=== PATIENT | male | born 1990 | race Caucasian/White ===

== ENCOUNTER 2018-07-07 17:00 | Emergency (ER) | payer OTHER ==
[~2018-07-07] VITALS: Ht 185.4 cm; Wt 72.6 kg
[2018-07-07] MEDS ORDERED: HYDROCODONE/APAP 10MG-325MG TAB PO ONE (17:15)
--- NOTE | 2018-07-07 18:17 | Diagnostic Imaging Report ---
Radiographs of the left foot - 3 views HISTORY: Pain COMPARISON: None available. FINDINGS: Bones: Comminuted fractures involving the proximal third fourth and fifth metatarsals with soft tissue swelling. Osseous alignment is within normal limits. Joints: The joint spaces are well-maintained. Soft tissues: The soft tissues appear unremarkable. IMPRESSION: Comminuted fractures involving the proximal third fourth and fifth metatarsals with soft tissue swelling. Signed by: Dr. Sathya Dent M.D. on 07/07/2018 6:14 PM
[2018-07-28] MEDS ORDERED: IBUPROFEN400 MG PO (09:42)
== END 2018-07-07 18:50 | disposition home or self-care (01) ==
LOC: ER 17:00
DX: S92.325A Nondisplaced fracture of second metatarsal bone, left foot, initial encounter for closed fracture (principal); S92.335A Nondisplaced fracture of third metatarsal bone, left foot, initial encounter for closed fracture; S92.345A Nondisplaced fracture of fourth metatarsal bone, left foot, initial encounter for closed fracture; S92.355A Nondisplaced fracture of fifth metatarsal bone, left foot, initial encounter for closed fracture; S97.82XA Crushing injury of left foot, initial encounter; Y99.0 Civilian activity done for income or pay
CPT/HCPCS: 99283

== ENCOUNTER 2018-07-07 22:51 | Emergency (ER) | payer OTHER ==
[~2018-07-07] VITALS: Ht 185.4 cm; Wt 72.6 kg
[2018-07-28] MEDS ORDERED: IBUPROFEN400 MG PO (09:42)
== END 2018-07-07 23:36 | disposition home or self-care (01) ==
LOC: ER 22:51
DX: S92.335A Nondisplaced fracture of third metatarsal bone, left foot, initial encounter for closed fracture (principal); S92.345A Nondisplaced fracture of fourth metatarsal bone, left foot, initial encounter for closed fracture; S92.355A Nondisplaced fracture of fifth metatarsal bone, left foot, initial encounter for closed fracture; X58.XXXA Exposure to other specified factors, initial encounter; Y92.008 Other place in unspecified non-institutional (private) residence as the place of occurrence of the external cause
CPT/HCPCS: 99282

== ENCOUNTER → 2018-07-28 | Day surgery (SDC) | payer OTHER ==
[~2018-07-28] MED LIST: ACETAMINOPHEN 1000 MG/100 ML IV ONE; BUPIVACAINE HCL 0.5% INJ 30 ML VIAL INJ ONE; CEFAZOLIN SOD 1 GM/D5W 50ML 50 ML IV ONE; DEXAMETHASONE SOD PHOS INJ 4 MG/ML VIAL ONE; FENTANYL CITRATE/PF 100MCG/2 ML INJ ONE; IBUPROFEN400 MG PO; KETOROLAC TROMETHAMINE 30 MG/ML VIAL ONE; LIDOCAINE HCL 2% LOCAL INJ 5 ML SDV VIAL INJ ONE; MIDAZOLAM HCL 2 MG/2 ML VIAL ONE; ONDANSETRON HCL INJ 2 MG/ML VIAL ONE; PROPOFOL IV EMULSION 10 MG/ML 20 ML VIAL ONE; SEVOFLURANE INHAL SOLN 250 ML PEN BTL ONE
--- OUTSIDE RECORDS SUMMARY | 2018-07-28 09:05 | XMS REPORT ---
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 Allergies, Adverse Reactions, Alerts This patient has no known allergies or adverse reactions. Medications This patient has no known medications. Results Test Description Test Time Test Comments Text Results Atomic Results Result Comments FOOT LEFT COMPLETE 2018-07-07 18:13:00 [place] [address] Patient Name: MERY SHEPHERD MR #: [id number] : 1990 Age/Sex: 27/M Req #: [id number] Adm Physician: Ordered by: LEOBARDO BLUM NET MOBILE DEVELOPER Report #: [id number] Location: ER Room/Bed: Procedure: [id number] DX/FOOT LEFT COMPLETE Exam Date: 07/07/18 Exam Time: 1759 REPORT STATUS: Signed Radiographs of the left foot - 3 views HISTORY: Pain COMPARISON: None available. FINDINGS: Bones: Comminuted fractures involving the proximal third fourth and fifth metatarsals with soft tissue swelling. Osseous alignment is within normal limits. Joints: The joint spaces are well-maintained. Soft tissues: The soft tissues appear unremarkable. IMPRESSION: Comminuted fractures involving the proximal third fourth and fifth metatarsals with soft tissue swelling. Signed by: Dr. Marta Dent M.D. on 07/07/2018 6:14 PM Dictated By: MARTA DENT MD, MD 13 Transcribed By: DONNA on 07/07/181813 COPY TO: LEOBARDO BLUM NP
[2018-07-28 14:45] VITALS: BP 115/79
--- NOTE | 2018-08-08 09:13 | Operative Report ---
DATE OF PROCEDURE: July 28, 2018 PREOPERATIVE DIAGNOSES 1. Left 3rd metatarsal fracture. 2. Left 4th metatarsal fracture. 3. Left 5th metatarsal fracture. POSTOPERATIVE DIAGNOSES 1. Left 3rd metatarsal fracture. 2. Left 4th metatarsal fracture. 3. Left 5th metatarsal fracture. PLANNED PROCEDURES 1. Left 3rd metatarsal open reduction internal fixation. 2. Left 4th metatarsal open reduction internal fixation. 3. Left 5th metatarsal open reduction internal fixation. SURGEON: Misbah Lara DPM PHOTOGRAPHY COORDINATOR: Darrin Hall DPM ANESTHESIA: General with a postoperative block consisting of 20 mL of 0.5% Marcaine plain. HEMOSTASIS: Pneumatic thigh tourniquet set at 350 mmHg for a total time of approximately 90 minutes. MATERIALS: 2-0 Vicryl, 3-0 Vicryl, 4-0 nylon, Sincerely 5th metatarsal hook plate, 2 right metatarsal 4-hole metatarsal plates, and multiple combination locking and nonlocking screws measuring between 14 and 20 mm. ESTIMATED BLOOD LOSS: Less than 10 mL. PATHOLOGY: None. PROCEDURE IN DETAIL: Patient was seen in the preoperative waiting room where the correct procedure and site was identified. The patient was brought to the operating room and placed on the operating table in the supine position. General anesthesia was initiated at this time. A well-padded pneumatic tourniquet was placed about the patient's left thigh. The left foot, ankle and leg was then scrubbed, prepped and draped in the usual aseptic manner. The left foot, ankle and leg was exsanguinated with an Esmarch bandage and pneumatic thigh tourniquet was inflated to 350 mmHg for a total time of approximately 90 minutes. Attention was directed the lateral aspect of the patient's left foot in the area of the 5th metatarsal base. A 5 cm linear incision made directly over the base of the 5th metatarsal extending to the midshaft of the metatarsal. The dissection was carried down to the level of the bone to allow for good visualization of the fracture site. The fracture site was cleansed and debrided with a curette and flushed with copious amounts of sterile saline. Utilizing techniques of manipulation and distraction, the fracture site was reduced and temporarily fixated with a K-wire. Next, utilizing or manager protocol, the 5th metatarsal hook plate was placed into the base of the metatarsal allowing to ensure that the peroneal tendon was intact and tamped into position. Next, per or manager protocol, a combination of locking and unlocking screws measuring between 14 and 20 mm were placed. Fixation site is stable and this was confirmed via intraoperative fluoroscopy. Next, attention was directed to the base of the 3rd and 4th metatarsals where a 6 cm linear incision was made directly between the 3rd and 4th metatarsals to allow for access to both fracture sites. First, attention was directed medially to the 3rd metatarsal where dissection was carried through to allow for good visualization of the base of the 3rd metatarsal joint. There was noted to be a simple complete oblique fracture through the proximal shaft of the 3rd metatarsal, which was minimally displaced. Utilizing a 4-hole [employer] metatarsal fracture plate, it was temporarily fixated with pins and confirmed via intraoperative fluoroscopy. The proximal screws were placed followed by the compression slot screw followed by the distal screw. Fixation site is stable. Through the same incision, attention was then directed to the 4th metatarsal base where a comminuted fracture site was noted at the level of the base. Utilizing a similar 4-hole metatarsal fracture plate from [employer], the plate was applied temporarily and fixated and confirmed via intraoperative fluoroscopy, and permanently fixated with good AO fixation with multiple screws. The wound was then flushed with copious amounts of sterile saline. Capsule and deep tissue were reapproximated with 2-0 Vicryl, subcutaneous tissue with 3-0 Vicryl and the skin was closed using a running interlocking stitch with 4-0 Prolene. All incision sites were then dressed with Adaptic, 4 x 4s, Kerlix, Webril, 4 x 30 posterior splint, a 4-inch Saud wrap, and a 6-inch Saud wrap. The patient tolerated the procedure and anesthesia well. Patient was transferred to the postoperative recovery unit with vital signs stable and vascular status intact. Patient was monitored there for a short period time before being sent home with following written and oral instructions. 1. Keep the dressing clean, dry and tact. 2. The patient is to remain nonweightbearing in a posterior splint and to avoid any ambulation until being seen in the office. 3. The patient was given the office number and instructed to contact us if any problems should arise. DICTATED BY DARRIN HALL DPM Job#: [id number]
== END | disposition home or self-care (01) ==
LOC: OR 09:03
PROVIDERS: ATTEND Podiatrist Foot & Ankle Surgery
DX: S92.332A Displaced fracture of third metatarsal bone, left foot, initial encounter for closed fracture (principal); S92.342A Displaced fracture of fourth metatarsal bone, left foot, initial encounter for closed fracture; S92.352A Displaced fracture of fifth metatarsal bone, left foot, initial encounter for closed fracture; H91.93 Unspecified hearing loss, bilateral; F17.210 Nicotine dependence, cigarettes, uncomplicated; X58.XXXA Exposure to other specified factors, initial encounter
CPT/HCPCS: 28485 ×3; C1713; J0131; J0690; J1100; J1885; J2001; J2250; J2405; J2704